=== PATIENT | male | born 1965 | race Caucasian/White ===

== ENCOUNTER 2017-04-02 16:24 | Emergency (ER) | payer BC ==
--- NOTE | 2017-04-02 19:57 | ED ---
Lower Extremity - HPI Summary HPI Summary: 52 yr old male with right 2nd toe pain. Onset this morning at 930 am. He dropped something on his shoe while working. COmplains of injury to the toe. He broke the skin. Last TD shot 3 yrs ago. No other complaints. He is a diabetic. - History of Current Complaint Chief Complaint: UCLowerExtremity Stated Complaint: RIGHT FOOT TOE INJURY Time Seen by Provider: 04/02/17 19:40 - Allergies/Home Medications Allergies/Adverse Reactions: Allergies Allergy/AdvReac Type Severity Reaction Status Date / Time Penicillins Allergy Intermediate Rash Verified 04/02/17 19:47 Home Medications: Home Medications Allopurinol TAB* [Zyloprim 100 MG TAB*] 1 tab DAILY 04/02/17 [History Confirmed 04/02/17] Lisinopril TAB* [Prinivil TAB 5 MG*] 1 tab DAILY 04/02/17 [History Confirmed ] Niacin ER TAB* [Niaspan ER TAB*] 1 tab BEDTIME 04/02/17 [History Confirmed 04/02] glipiZIDE TAB* [Glucotrol TAB*] 1 tab DAILY 04/02/17 [History Confirmed 04/02/17 ] metFORMIN* [Glucophage 850 MG TAB *] 2 tab DAILY 04/02/17 [History Confirmed ] PMH/Surg Hx/FS Hx/Imm Hx Infectious Disease History: Denies: Traveled Outside the [place] in Last 30 Days - N - Family History Known Family History: Positive: None - Social History Occupation: Employed Full-time Lives: With Family Smoking Status (MU): Never Smoked Tobacco Review of Systems Constitutional: Negative Positive: Other - foot trauma All Other Systems Reviewed And Are Negative: Yes Physical Exam Triage Information Reviewed: Yes Vital Signs Reviewed: Yes Appearance: Positive: Well-Appearing, No Pain Distress Skin: Positive: Other - abrasion to the dorsum of the 2nd toe right foot. Eyes: Positive: EOMI ENT: Positive: Pharynx normal Respiratory/Lung Sounds: Positive: Clear to Auscultation, Breath Sounds Present Cardiovascular: Positive: RRR, Pulses are Symmetrical in both Upper and Lower Extremities Abdomen Description: Positive: Nontender Musculoskeletal: Positive: Strength/ROM Intact, Other - right 2nd toe mild tender. No gross deformity, but there is bruising. Neurological: Positive: Sensory/Motor Intact, Alert, Oriented to Person Place, Time, CN Intact II-III Psychiatric: Positive: Normal - [place] Coma Scale Best Eye Response: 4 - Spontaneous Best Motor Response: 6 - Obeys Commands Best Verbal Response: 5 - Oriented Coma Scale Total: 15 Lower Extremity Course/Dx - Course Course Of Treatment: 52 yr old with distal phalynx fracture right second toe. Rx with clindamycin, and also give post op shoe. Refer to ortho. - Diagnoses Provider Diagnoses: Fracture of toe of right foot, Abrasion foot/toe Discharge - Discharge Plan Condition: Good Disposition: HOME Prescriptions: Clindamycin HCl [Clindamycin 150 MG CAP*] 150 mg PO QID #20 cap Patient Education Materials: Toe Fracture (ED), Abrasion (ED) Forms: *Work Release Referrals: Cuauhtemoc Sullivan MD [Primary Care Provider] - 2 Days Gilmar Lord MD [Medical Doctor] -
[2017-04-02 20:01] VITALS: BP 124/87
[2017-04-02] MEDS ORDERED: Clindamycin CAP* 150 MG PO ONE (20:03)
--- NOTE | 2017-04-02 20:12 | RAD ---
INDICATION: Right second toe injury. TECHNIQUE: 3 views of the right second toe were obtained. FINDINGS: There is soft tissue swelling in the second toe. There is a comminuted fracture of the distal phalanx. The fracture fragments are slightly distracted. IMPRESSION: COMMINUTED SLIGHTLY DISPLACED FRACTURE OF THE DISTAL PHALANX.
== END 2017-04-02 20:33 | disposition home or self-care (01) ==
LOC: UCCORT 16:24
DX: S92.531A Displaced fracture of distal phalanx of right lesser toe(s), initial encounter for closed fracture (principal); S90.414A Abrasion, right lesser toe(s), initial encounter; W20.8XXA Other cause of strike by thrown, projected or falling object, initial encounter; Y93.9 Activity, unspecified; Y92.9 Unspecified place or not applicable; Y99.0 Civilian activity done for income or pay; Z88.0 Allergy status to penicillin
CPT/HCPCS: 99203; A9270-GY; G0463